=== PATIENT | female | born 1980 | race Caucasian/White ===

== ENCOUNTER → 2017-09-19 | Outpatient (CLI) | payer BC ==
--- NOTE | 2017-09-19 15:31 | CT ---
HISTORY: Right flank pain and hematuria. History of kidney stones. Study: CT abdomen and pelvis without contrast Comparison: None. Technique: Multiple axial images of the abdomen and pelvis were obtained from the lung bases to the pubic symphy sis without the administration of IV contrast. Dose reduction techniques including Automated Exposur e Control (AEC) and adjustment of mA and kV were utilized. Findings: Limited evaluation secondary to lack of IV and oral contrast. The visualized portions of the lung bases are unremarkable. 1.2 cm simple appearing cyst within the left liver lobe. Remaining visualized liver is unremarkable. The visualized spleen, pancreas, adrenal s, and gallbladder are unremarkable. Cortical regularity of the left kidney that is also small. This may represent chronic infections. No obvious left kidney hydronephrosis or nephrolithiasis. 5 mm ston e at the right UVJ causing mild hydronephrosis/hydroureter. Multiple other stones are seen within the right kidney, the largest measuring 5 mm within the right inferior renal pole. No significant mesen teric lymphadenopathy or stranding can be observed. No free fluid or free air is seen within the abd omen. Limited evaluation of the bowel secondary to lack of contrast and collapse. The large and small bowel are otherwise unremarkable. The appendix appears surgically absent. The uterus and right ovary appear surgically absent. 2.8 cm dominant follicle within the left ovary. Remaining bladder appears normal. The osseous structures are intact. IMPRESSION: 1. 5 mm stone at the right UVJ causing mild hydronephrosis/hydroureter. 2. Other chronic findings as above. Reported By:
== END | disposition home or self-care (01) | DRG 696 ==
LOC: RAD 14:28
PROVIDERS: ATTEND Internal Medicine
DX: R31.9 Hematuria, unspecified (principal); N20.9 Urinary calculus, unspecified
CPT/HCPCS: 74176

== ENCOUNTER 2018-12-01 09:10 | Observation (INO) ==
[2018-12-01 09:20] VITALS: BMI 30.8
[2018-12-01 09:53] LABS: BILIRUBIN,URINE NEGATIVE (NEGATIVE); BLOOD/HEMOGLOBIN,URINE 1+ (NEGATIVE); GLUCOSE, URINE NEGATIVE (NEGATIVE); KETONES,URINE NEGATIVE (NEGATIVE); LEUKOCYTE ESTERASE ,URINE NEGATIVE (NEGATIVE); NITRITES,URINE NEGATIVE (NEGATIVE); PROTEIN,URINE NEGATIVE (NEGATIVE); UROBILINOGEN,URINE NORMAL (NORMAL)
[2018-12-01 09:54] LABS: APPEARANCE,URINE CLEAR (CLEAR); COLOR,URINE YELLOW (YELLOW)
[2018-12-01 10:00] LABS: BACTERIA,URINE TRACE /HPF (NEGATIVE); SQUAMOUS EPITHELIAL CELL,UR FEW /HPF (NEGATIVE)
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
--- NOTE | 2018-12-01 11:34 | RAD ---
Exam: Right shoulder three views History: Right shoulder pain Comparison: None Findings: The acromioclavicular and glenohumeral joints are normal. No acute bony abnormality or significant degenerative change is seen on this exam. Impression: Negative right shoulder radiographs. Reported By:
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
[2018-12-01] MEDS ORDERED: ZOFRAN INJ 4 MG VIAL IVP ONE (13:09)
[2018-12-01] MEDS ORDERED: DEMEROL INJ IVP ONE (13:09)
[2018-12-01] MEDS ORDERED: ZOFRAN INJ 4 MG VIAL ONE (13:10)
[2018-12-01] MEDS ORDERED: DEMEROL INJ ONE (13:11)
[2018-12-01 13:21] LABS: BASOPHILS % (AUTO) 0.3 % (0.2-1.0); HEMATOCRIT 39.2 % (36.0-47.0); HEMOGLOBIN 13.2 g/dL (12.0-16.0); LYMPHOCYTES # (AUTO) 1.6 X10^3/uL (1.3-2.9); LYMPHOCYTES % (AUTO) 14.2 % (21.0-51.0); MEAN CORPUSCULAR HEMOGLOBIN 30.7 pg (27.0-34.0); MEAN CORPUSCULAR HGB CONC 33.6 g/dL (33.0-35.0); MEAN CORPUSCULAR VOLUME 91.5 fL (80.0-100.0); MEAN PLATELET VOLUME 8.9 fL (7.4-11.0); MONOCYTES # (AUTO) 0.7 x10^3/uL (0.3-0.8); MONOCYTES % (AUTO) 6.6 % (0.0-13.0); NEUTROPHILS # (AUTO) 8.6 x10^3/uL (2.2-4.8); NEUTROPHILS % (AUTO) 78.9 % (42.0-75.0); PLATELET COUNT 244 X10^3/uL (150.0-450.0); RED BLOOD COUNT 4.29 X10^6/uL (3.5-5.4); RED CELL DISTRIBUTION WIDTH 13.3 % (11.6-16.5); WHITE BLOOD COUNT 10.9 X10^3/uL (3.6-10.0)
[2018-12-01 13:28] LABS: ALANINE AMINOTRANSFERASE 22 Units/L (12-78); ALBUMIN 3.9 g/dL (3.4-5.0); ALKALINE PHOSPHATASE 55 Units/L (46-116); ASPARTATE AMINO TRANSFERASE 19 Units/L (15-37); BLOOD UREA NITROGEN 8 mg/dL (7-18); CARBON DIOXIDE 25.6 mmol/L (21-32); CHLORIDE 106 mmol/L (98-107); SODIUM 143 mmol/L (136-145); TOTAL PROTEIN 7.4 g/dL (6.4-8.2); eGFR NON BLACK RACES > 60 (>60)
[2018-12-01] MEDS: NS 1000 ML 1,000 ML IV SCH (15:02)
[2018-12-01] MEDS ORDERED: TYLENOL 325 MG TAB PO PRN (17:09)
[2018-12-01] MEDS ORDERED: AMBIEN PO PRN (17:09)
[2018-12-01] MEDS ORDERED: MOTRIN TAB 800 MG PO ONE (17:28)
[2018-12-01] MEDS: MOTRIN TAB 800 MG PO PRN (17:35)
[2018-12-01] MEDS ORDERED: PERCOCET TAB 5/325 MG PO PRN (18:09)
[2018-12-01] MEDS ORDERED: ULTRAM PO PRN (20:00)
[2018-12-01] MEDS: VISTARIL PO PRN (20:09)
[2018-12-01] MEDS ORDERED: TORADOL 30 MG VIAL IVP ONE (21:00)
[2018-12-02] MEDS: NS 1000 ML 1,000 ML IV SCH ×2 (04:34→16:51)
[2018-12-02 05:21] LABS: BASOPHILS % (AUTO) 0.4 % (0.2-1.0); EOSINOPHILS # (AUTO) 0.1 x10^3/uL (0.0-0.2); HEMATOCRIT 36.2 % (36.0-47.0); HEMOGLOBIN 12.1 g/dL (12.0-16.0); LYMPHOCYTES # (AUTO) 2.1 X10^3/uL (1.3-2.9); LYMPHOCYTES % (AUTO) 31.2 % (21.0-51.0); MEAN CORPUSCULAR HEMOGLOBIN 31.2 pg (27.0-34.0); MEAN CORPUSCULAR HGB CONC 33.5 g/dL (33.0-35.0); MEAN CORPUSCULAR VOLUME 93.2 fL (80.0-100.0); MONOCYTES # (AUTO) 0.5 x10^3/uL (0.3-0.8); MONOCYTES % (AUTO) 8.1 % (0.0-13.0); NEUTROPHILS % (AUTO) 59.3 % (42.0-75.0); PLATELET COUNT 207 X10^3/uL (150.0-450.0); RED BLOOD COUNT 3.88 X10^6/uL (3.5-5.4); RED CELL DISTRIBUTION WIDTH 13.4 % (11.6-16.5); WHITE BLOOD COUNT 6.7 X10^3/uL (3.6-10.0)
[2018-12-02 05:37] LABS: ALANINE AMINOTRANSFERASE 19 Units/L (12-78); ALBUMIN 3.1 g/dL (3.4-5.0); ALKALINE PHOSPHATASE 47 Units/L (46-116); ASPARTATE AMINO TRANSFERASE 19 Units/L (15-37); BLOOD UREA NITROGEN 8 mg/dL (7-18); CALCIUM 8.2 mg/dL (8.5-10.1); CARBON DIOXIDE 24.4 mmol/L (21-32); CHLORIDE 106 mmol/L (98-107); COR CA(FOR HYPOALB) 8.9 mg/dL (8.5-10.1); CREATININE 0.79 mg/dL (0.55-1.02); SODIUM 142 mmol/L (136-145); TOTAL PROTEIN 6.2 g/dL (6.4-8.2); eGFR NON BLACK RACES > 60 (>60)
[2018-12-02] MEDS: VISTARIL PO PRN (15:45)
[2018-12-02] MEDS: MOTRIN TAB 800 MG PO PRN (15:45)
[2018-12-02 16:50] VITALS: BP 111/71
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
== END 2018-12-02 18:40 | disposition home or self-care (01) ==
LOC: MED/SURG 09:14 → ER 09:14 → MED/SURG 14:14
PROVIDERS: ADMIT Internal Medicine; ATTEND Internal Medicine
DX: Y04.0XXA Assault by unarmed brawl or fight, initial encounter; S40.021A Contusion of right upper arm, initial encounter; S00.83XA Contusion of other part of head, initial encounter; Y92.89 Other specified places as the place of occurrence of the external cause
CPT/HCPCS: 36415; 70450; 70486; 72125; 73030; 80053; 81001; 85025; 94760; 96365; 96367; 96374; 96375; 99218; 99284; A4222; Q0177; G0378; J1885; J2175; J2405; J7030